=== PATIENT | female | born 1970 | race Asian ===

== ENCOUNTER → 2023-12-08 07:04 | Outpatient (REF) | payer BC, SELFPAY ==
[2023-12-08 07:45] VITALS: BP 149/96; BP_SYST 72
[2023-12-08 07:50] LABS: INR 1.02; PT 13.2 Sec (11.4-14.6)
[2023-12-08 07:54] LABS: % Basophils 0.7 % (0-2); % Eosinophils 2.8 % (0-6); % Immature Granulocytes 0.3 % (0-0.5); % Lymphocytes 44.8 % (20.5-51.1); % Monocytes 7.2 % (1.7-9.3); % Neutrophils 44.2 % (42.2-75.2); Absolute Eosinophils 0.1 10^3/uL (0-0.7); Absolute Lymphocytes 1.3 10^3/uL (1.2-3.4); Absolute Monocytes 0.2 10^3/uL (0.1-0.6); Absolute Neutrophils 1.3 10^3/uL (1.4-6.5); Hematocrit 44.7 % (37.0-47.0); Hemoglobin 15.2 g/dL (12.0-16.0); Mean Corpuscular Hgb 30.4 pg (27.0-31.0); Mean Corpuscular Volume 89.4 fL (81.0-99.0); Mean Platelet Volume 10.3 fL (7.4-10.4); Nucleated Red Blood Cells % 0 %; Platelet Count 129 10^3/uL (130-400); Red Cell Dist. Width 12.4 % (11.5-14.5); White Blood Cell Count 2.9 10^3/uL (4.8-10.8)
[2023-12-08] MEDS: ATIVAN 0.5 MG IV (08:29)
[2023-12-08] MEDS: NSS (PRESERVATIVE FREE) 0.25 ML IV (08:29)
[2023-12-08] MEDS: FLUSH (NSS) 1 FLUSH IV (08:29)
[2023-12-08 09:08] VITALS: BP 144/89
== END ==
LOC: RADI 07:04
PROVIDERS: ATTENDING PHYSICIAN Internal Medicine Hematology & Oncology
DX: D47.2 Monoclonal gammopathy (principal); D70.9 Neutropenia, unspecified; D69.6 Thrombocytopenia, unspecified
CPT/HCPCS: 88305; 88311; 88312; 36415; 38222; 77012; 85025; 85610; 88313